=== PATIENT | male | born 1950 | race Caucasian/White ===

== ENCOUNTER 2017-03-11 11:35 | Emergency (ER) | payer MEDICARE, OTHER ==
[2017-03-11] MEDS ORDERED: KETOROLAC TROMETHAMINE 30 MG/ML VIAL IM ONE (12:05)
--- NOTE | 2017-03-11 12:07 | ERNOTE ---
ER Male HPI Date of Service: 03/11/17 Stated Complaint: KIDNEY STONE ER Male: dysuria, other - L flank pain Time Seen by Provider: 03/11/17 11:49 Source: patient Exam Limitations: no limitations Immunizations: IMMUNIZATION HX Immunizations Up to Date No: unknown History of Influenza Vaccine No Hx Pneumococcal Vaccination No Allergies/Adverse Reactions: Allergies menthol [From [employer]] Adverse Reaction (Intermediate, Verified 03/11/17 11:45) Swelling (Other) methyl salicylate [From Icy [employer]] Adverse Reaction (Intermediate, Verified 11:45) Swelling (Other) - History of Present Illness Narrative: Pt. comes in with c/o L flank pain, LLQ pain, dysuria, and nausea for 12 hours. Pt. has ahd a hx of kidney stones in the past an states that this feels similar. Pt. denies any CP, fever, vomiting, diarrhea, hematuria, alleviating factors, aggravating factor, or prehospital treatment. Review of Systems - Review of Systems Constitutional: Present: no symptoms reported. Absent: recent illness, fever, chills, weakness, fatigue, malaise EYE: Present: no symptoms reported ENT: Present: no symptoms reported Respiratory: Present: no symptoms reported. Absent: shortness of breath, cough , wheezing Cardiology: Present: no symptoms reported. Absent: chest pain, palpitations, edema Gastrointestinal/Abdominal: Present: nausea, abdominal pain - LLQ Genitourinary: Present: frequency, pain, dysuria. Absent: hematuria Musculoskeletal: Present: back pain - L flank. Absent: muscle pain, neck pain, joint pain Skin: Present: no symptoms reported. Absent: rash, change in color Neurological: Present: no symptoms reported. Absent: headache, dizziness/light- headedness, numbness, tingling All Other Systems: All systems neg except as marked - Patient's Past Medical History Patient History - Medical: Kidney stone Patient History - Cardiac/Respiratory: No pertinent hx Patient History - Cancer: No Hx of Cancer Patient History - Surgical Procedures: No surgical history Patient History - Other: None - Family History Father Family History - Medical: , No pertinent hx Family History - Cardiac/Respiratory: Myocardial Infarction Mother Family History - Medical: Diabetes Type 2 Insulin Dependent - Social History Living Situations: spouse Abuse History: No History of abuse Psych History: Hx of Depression, Hx of Suicide Attempt Alcohol Use: rarely Drug Use: none - Immunizations Immunizations Up to Date: No - unknown Hx Pneumococcal Vaccination: No History of Influenza Vaccine: No Physical Exam - Physical Exam General Appearance: Present: wd/wn, alert, no apparent distress Head Exam: Present: normal inspection, no evidence of injury Eye Exam: Normal inspection: bilateral Neck: Present: normal inspection, nontender. Absent: lymphadenopathy (R), lymphadenopathy (L) Respiratory: Present: no respiratory distress, normal breath sounds, no accessory muscle use, chest nontender, lungs clear Cardiovascular/Chest: Present: regular rate, rhythm, no murmur, normal peripheral pulses Gastrointestinal/Abdominal: Present: normal bowel sounds, nondistended, soft, no organomegaly, tenderness - L suprapubic Back Exam: Present: normal range of motion, no vertebral tenderness, CVA tenderness (L) Extremity Exam: Present: normal inspection, non-tender, normal range of motion, no edema Neurological Exam: Present: alert, oriented, normal mood/affect, no motor/ sensory deficits Skin Exam: Present: normal color, warm/dry. Absent: pallor, skin rash ED Progress - Date and Time Seen: Date and Time: 03/11/17 12:[address] Ha and has pt. has renal stone hx and has clinical s/sx of kidney stone he recommends getting a CT although pt. does not have blood in his urine. - Results and Orders Patient's Lab Results:: I have reviewed the patient's lab results. - Vital Signs Patient's Vital Signs:: I have reviewed the patient's vital signs. Vital Signs: Vital Signs 03/11/17 11:37 Temperature 36.8 C Pulse Rate 79 Respiratory 14 Rate Blood Pressure 153/72 O2 Sat by Pulse 98 Oximetry - CT/Ultrasound CT/Ultrasound Narrative: CT abd without any evidence of ureteral stone but with intra renal stone and L greater that R renal cysts so this could be the source of pt. symptoms or he could have passed a stone so will have him follow up with urologist on non- emergent basis. - Progress/Reassessment Chief Complaint: Genitourinary Problem Departure Clinical Impression: Renal colic on left side - Departure Disposition: Home self-care Condition: Good Instructions: Renal Colic, [id number] Additional Instructions: Please follow up with urologist in 2-3 daysfor further evaluation of renal cysts and symptoms. Referrals: Ludmila Carter MD [Primary Care Provider] -
[2017-03-11] MEDS ORDERED: KETOROLAC TROMETHAMINE 30 MG/ML VIAL ONE (12:10)
[2017-03-11 12:12] LABS: Hemoglobin 15.2 gm/dL (13.5-18.0); Mean Cell Volume 94.7 fl (78-100); Mean Corpuscular Hgb Conc 33.8 g/dl (32-36); Mean Platelet Volume 9.4 fl (6.0-9.5); Neutrophil # 3.8 K/mm3 (1.3-6.0); Neutrophil % 58.6 % (42-75.0); Platelet Count 230 K/mm3 (150-450); Red Blood Count 4.75 M/mm3 (4.7-6.0); White Blood Count 6.5 K/mm3 (4.0-10.5)
[2017-03-11 12:18] LABS: Urine Bilirubin Negative (NEGATIVE); Urine Blood Negative /ul (NEGATIVE); Urine Ketone Negative (NEGATIVE); Urine Nitrite Negative (NEGATIVE); Urine Protein Negative (NEGATIVE); Urine Specific Gravity 1.025 SP.GR. (1.005-1.030); Urine Urobilinogen Normal (NORMAL)
[2017-03-11 12:24] LABS: Urine Appearance Clear; Urine Bacteria None Seen; Urine Color Dark Yellow; Urine RBC None Seen /hpf (0-5); Urine WBC None Seen /hpf (0-5)
[2017-03-11 12:26] LABS: Albumin * 4.2 gm/dl (3.4-5.0); Anion Gap 13.2 mmol/L (6.8-13.8); BUN/Creatinine Ratio 17.7 (9.0-21.6); Bilirubin, Total 0.4 mg/dL (0.0-1.1); Ca. Corrected For Albumin 8.6 mg/dL (8.4-10.2); Calcium * 9.1 mg/dL (7.9-10.9); Carbon Dioxide 27.8 mmol/L (24-32.6); Total Protein 7.9 gm/dL (6.2-8.2)
[2017-03-11 17:47] VITALS: BP 147/72
== END 2017-03-11 13:56 | disposition home or self-care (01) ==
LOC: ER 11:35
DX: N23 Unspecified renal colic (principal); Z87.442 Personal history of urinary calculi